=== PATIENT | male | born 1965 | race Asian ===

== ENCOUNTER 2017-02-23 17:43 | Emergency (ER) | payer BC ==
[~2017-02-23] VITALS: Ht 172.7 cm; Wt 93.6 kg
[2017-02-23 17:45] VITALS: Ht 172.7 cm; Wt 93.6 kg
[2017-02-23] MEDS ORDERED: FAMOTIDINE 20MG/5ML IV PUSH IV STA (18:08)
[2017-02-23] MEDS ORDERED: SODIUM CHLORIDE 0.9% 1000ML 1,000 ML IV STA ×3 (18:08→22:15)
[2017-02-23] MEDS ORDERED: FENTANYL CITRATE INJ 50 MCG/1 ML 2 ML VIAL IV ONE (18:15)
[2017-02-23 18:17] VITALS: O2SAT 95
[2017-02-23 18:26] LABS: BASO % 0.5 %; BASO ABS # 0.04 K/uL (0-0.2); EOS % 4.3 %; EOS ABS # 0.33 K/uL (0-0.5); HEMATOCRIT 46.8 % (42-52); HEMOGLOBIN 16.5 g/dL (14.0-18.0); IG# 0.02 K/uL (0.00-0.02); LYMPH % 39.2 %; LYMPH ABS # 3.04 K/uL (1.2-3.4); MEAN CELL VOLUME 93.2 fL (80-100); MEAN CORPUSCULAR HEMOGLOBIN 32.9 pg (25-34); MEAN CORPUSCULAR HGB CONC 35.3 g/dl (32-36); MEAN PLATELET VOLUME 10.5 fL (7.4-10.4); MONO % 7.9 %; MONO ABS # 0.61 K/uL (0.11-0.59); NEUT % 47.8 %; NEUT ABS # 3.71 K/uL (1.4-6.5); PLATELET COUNT 221 K/uL (130-400); RED CELL DISTRIBUTION WIDTH CV 12.2 % (11.5-14.5); RED CELL DISTRIBUTION WIDTH SD 40.8 fL (36.4-46.3); WHITE BLOOD COUNT 7.75 K/uL (4.8-10.8)
[2017-02-23] MEDS ORDERED: OPTIRAY 320 IV PRN (18:30)
[2017-02-23 18:38] LABS: ISTAT CREATININE 1.2 mg/dl (0.6-1.3); ISTAT IONIZED CALCIUM 1.21 mmol/l (1.12-1.32); ISTAT POTASSIUM 3.6 mEq/L (3.3-5.0)
[2017-02-23] MEDS ORDERED: METF-383 PO (18:42)
[2017-02-23] MEDS ORDERED: OMEG10007 PO (18:43)
[2017-02-23] MEDS ORDERED: MULT-506 PO (18:44)
[2017-02-23] MEDS ORDERED: LECI1200 PO (18:45)
[2017-02-23 18:53] LABS: ALKALINE PHOSPHATASE 50 U/L (45-117); ALT/SGPT 33 U/L (12-78); AST/SGOT 20 U/L (15-37); BLOOD UREA NITROGEN 17 mg/dl (7-18); CALCIUM 8.8 mg/dl (8.5-10.1); CARBON DIOXIDE 27 mmol/L (21-32); CREATININE 1.26 mg/dl (0.60-1.40); GLUCOSE 108 mg/dl (70-99); LIPASE 148 U/L (73-393); POTASSIUM 3.6 mmol/L (3.5-5.1); SODIUM 139 mmol/L (136-145); TOTAL PROTEIN 7.7 gm/dl (6.4-8.2)
--- NOTE | 2017-02-23 19:05 | DIAGNOSTIC IMAGING REPORT ---
CHEST ONE VIEW PORTABLE CLINICAL HISTORY: CHEST PAIN pain COMPARISON STUDY: No previous studies for comparison. FINDINGS: The bones soft tissues and hemidiaphragms are normal. The cardiomediastinal silhouette is normal. The lungs are clear. The pulmonary vasculature is normal. IMPRESSION: Negative chest. The above report was generated using voice recognition software. It may contain grammatical, syntax or spelling errors. Electronically signed by: Mika Denis M.D. 02/23/2017 7:04 PM Dictated Date/Time: 02/23/2017 7:04 PM
--- NOTE | 2017-02-23 19:28 | DIAGNOSTIC IMAGING REPORT ---
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 No additional abnormalities are identified. No evidence for contrast extravasation. Electronically signed by: Mika Denis M.D. 02/23/2017 7:36 PM Dictated Date/Time: 02/23/2017 7:35 PM ORIGINAL REPORT Study: CT angiography chest abdomen and pelvis HISTORY:: Pain. FINDINGS: Lungs are clear. The thoracic aorta is normal in course and caliber. There is a small hiatal hernia. Evaluation of the arterial structures the abdomen and pelvis showed no evidence for aneurysm or dissection. There is no significant stenotic process. Bowel pattern is nonobstructive. Liver spleen and pancreas are unremarkable. The appendix is normal. The thoracolumbar spine shows minimal degenerative disc change. There is no evidence for compression deformity. IMPRESSION: No evidence for aneurysm or dissection. 2. No filling defects of the pulmonary arterial vasculature. 3. Lungs are clear. 4. Nonobstructive bowel pattern with no acute process of the abdomen or pelvis. 5. No acute process of the musculoskeletal system Electronically signed by: Mika Denis M.D. 02/23/2017 7:27 PM Dictated Date/Time: 02/23/2017 7:23 PM
--- NOTE | 2017-02-23 19:35 | DIAGNOSTIC IMAGING REPORT ---
ANGIO ABD/PELVIS WITH CONTRAST CLINICAL HISTORY: Pain Chest pain TECHNIQUE: Transaxial acquisition with multi axial reformatted images COMPARISON STUDY: CT angiogram of chest FINDINGS: Residual report as noted in the CT of the chest. Evaluation of high-resolution images of the abdomen and pelvis demonstrate a short segment dissection of the celiac axis approximate 1 cm from its origin. This extends over a length of 8 mm. No additional abdominal anomalies are present. All remaining arterial structures are unremarkable. 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 No evidence for contrast extravasation. This is best seen on sagittal reformatted images 43 of 79 in the sagittal plane. The above report was generated using voice recognition software. It may contain grammatical, syntax or spelling errors. Electronically signed by: Mika Denis M.D. 02/23/2017 7:34 PM Dictated Date/Time: 02/23/2017 7:31 PM
--- NOTE | 2017-02-23 21:27 | EMERGENCY ROOM VISIT NOTE ---
History Report prepared by Janesibgino: Cyril Chowdary Under the Supervision of: Dr. Elvis An M.D. First contact with patient: 18:05 Chief Complaint: CHEST PAIN Stated Complaint: HEART PAIN, BACK PAIN History of Present Illness The patient is a 51 year old male who presents to the Emergency Room with complaints of waxing and waning lower left chest pain beginning this morning. He states that his pain began after eating a kiwi for breakfast. He describes his pain as "sharp". The patient states that his pain worsened one hour ago. His pain radiates into his upper back, between his shoulder blades. He also complains of intermittent nausea, shortness of breath and diaphoresis. The patient has no known cardiac history, or history of blood clots. He is on Metformin for Type II Diabetes. He denies recent surgery or prolonged travel. The patient denies diarrhea. He states that he attempted to defecate earlier today but was unable. He denies eating anything abnormal today. Source of History: patient Onset: This morning Position: chest (lower left) Quality: sharp Timing: waxes/wanes Associated Symptoms: + diaphoresis, + SOB, + nausea (intermittent), + back pain (between shoulderblades), No diarrhea Review of Systems See HPI for pertinent positives and negatives. A total of ten systems were reviewed and were otherwise negative. Past Medical & Surgical Medical Problems: (1) Diabetes Family History No pertinent family history stated. Social History Smoking Status: Never Smoker Marital Status: Housing Status: lives with family Current/Historical Medications Scheduled Fish Oil ([place]-3), 1 CAP PO QPM Lecithin (Lecithin), 1,200 MG PO DAILY Metformin Hcl (Glucophage), 850 MG PO DAILY Multivitamin (Multivitamin), 1 TAB PO DAILY Allergies Coded Allergies: Tomato (Verified Allergy, Unknown, RASH, 02/23/17) Physical Exam Vital Signs Date Time Temp Pulse Resp B/P (MAP) Pulse Ox O2 Delivery O2 Flow Rate FiO2 02/24/17 02:51 36.9 64 18 127/79 99 02/23/17 23:30 64 13 99 Room Air 02/23/17 23:03 72 02/23/17 23:00 63 12 02/23/17 22:30 65 14 02/23/17 22:00 76 16 132/78 02/23/17 21:30 70 16 155/81 02/23/17 20:30 77 21 147/81 02/23/17 20:29 74 02/23/17 20:00 75 13 145/82 02/23/17 19:47 137/84 98 Room Air 02/23/17 19:45 62 16 02/23/17 18:45 61 14 02/23/17 18:17 95 Room Air 02/23/17 18:08 95 Room Air 02/23/17 17:58 61 02/23/17 17:45 65 16 148/83 98 Room Air Physical Exam GENERAL: Awake, alert, uncomfortable-appearing, in mild distress HENT: Normocephalic, atraumatic. Dry mucous membranes. EYES: Normal conjunctiva. Sclera non-icteric. NECK: Supple. No nuchal rigidity. FROM. No JVD. RESPIRATORY: Clear to auscultation. CARDIAC: Regular rate, normal rhythm. Extremities warm and well perfused. Pulses equal. ABDOMEN: Soft, non-distended. No tenderness to palpation. No rebound or guarding. No masses. RECTAL: Deferred. MUSCULOSKELETAL: Chest examination reveals no tenderness. The back is symmetrical on inspection without obvious abnormality. There is no CVA tenderness to palpation. No joint edema. LOWER EXTREMITIES: Calves are equal size bilaterally and non-tender. No edema. No discoloration. NEURO: Normal sensorium. No sensory or motor deficits noted. SKIN: Warm and moist. No rash or jaundice noted. Medical Decision & Procedures ER Provider Diagnostic Interpretation: Radiology results as stated below per my review and radiologist interpretation: CHEST ONE VIEW PORTABLE FINDINGS: The bones soft tissues and hemidiaphragms are normal. The cardiomediastinal silhouette is normal. The lungs are clear. The pulmonary vasculature is normal. IMPRESSION: Negative chest. The above report was generated using voice recognition software. It may contain grammatical, syntax or spelling errors. Electronically signed by: Mika Denis M.D. 02/23/2017 7:04 PM ORIGINAL REPORT Study: CT angiography chest abdomen and pelvis HISTORY:: Pain. FINDINGS: Lungs are clear. The thoracic aorta is normal in course and caliber. There is a small hiatal hernia. Evaluation of the arterial structures the abdomen and pelvis showed no evidence for aneurysm or dissection. There is no significant stenotic process. Bowel pattern is nonobstructive. Liver spleen and pancreas are unremarkable. The appendix is normal. The thoracolumbar spine shows minimal degenerative disc change. There is no evidence for compression deformity. IMPRESSION: No evidence for aneurysm or dissection. 2. No filling defects of the pulmonary arterial vasculature. 3. Lungs are clear. 4. Nonobstructive bowel pattern with no acute process of the abdomen or pelvis. 5. No acute process of the musculoskeletal system Electronically signed by: Mika Denis M.D. 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 No additional abnormalities are identified. No evidence for contrast extravasation. Electronically signed by: Mika Denis M.D. 02/23/2017 7:36 PM Dictated Date/Time: 02/23/2017 7:35 PM ANGIO ABD/PELVIS WITH CONTRAST FINDINGS: Residual report as noted in the CT of the chest. Evaluation of high-resolution images of the abdomen and pelvis demonstrate a short segment dissection of the celiac axis approximate 1 cm from its origin. This extends over a length of 8 mm. No additional abdominal anomalies are present. All remaining arterial structures are unremarkable. 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 No evidence for contrast extravasation. This is best seen on sagittal reformatted images 43 of 79 in the sagittal plane. The above report was generated using voice recognition software. It may contain grammatical, syntax or spelling errors. Electronically signed by: Mika Denis M.D. 02/23/2017 7:34 PM Laboratory Results 02/23/17 18:02 Red Blood Count 5.02, Mean Corpuscular Volume 93.2, Mean Corpuscular Hemoglobin 32.9, Mean Corpuscular Hemoglobin Concent 35.3, Mean Platelet Volume 10.5, Neutrophils (%) (Auto) 47.8, Lymphocytes (%) (Auto) 39.2, Monocytes (%) (Auto) 7.9, Eosinophils (%) (Auto) 4.3, Basophils (%) (Auto) 0.5, Neutrophils # (Auto) 3.71, Lymphocytes # (Auto) 3.04, Monocytes # (Auto) 0.61, Eosinophils # (Auto) 0.33, Basophils # (Auto) 0.04 02/23/17 18:02 Test 02/23/17 18:02 02/23/17 18:24 02/23/17 18:32 02/23/17 21:05 White Blood Count 7.75 K/uL (4.8-10.8) Red Blood Count 5.02 M/uL (4.7-6.1) Hemoglobin 16.5 g/dL (14.0-18.0) Hematocrit 46.8 % (42-52) Mean Corpuscular Volume 93.2 fL (80-100) Mean Corpuscular Hemoglobin 32.9 pg (25-34) Mean Corpuscular Hemoglobin Concent 35.3 g/dl (32-36) Platelet Count 221 K/uL (130-400) Mean Platelet Volume 10.5 fL (7.4-10.4) Neutrophils (%) (Auto) 47.8 % Lymphocytes (%) (Auto) 39.2 % Monocytes (%) (Auto) 7.9 % Eosinophils (%) (Auto) 4.3 % Basophils (%) (Auto) 0.5 % Neutrophils # (Auto) 3.71 K/uL (1.4-6.5) Lymphocytes # (Auto) 3.04 K/uL (1.2-3.4) Monocytes # (Auto) 0.61 K/uL (0.11-0.59) Eosinophils # (Auto) 0.33 K/uL (0-0.5) Basophils # (Auto) 0.04 K/uL (0-0.2) RDW Standard Deviation 40.8 fL (36.4-46.3) RDW Coefficient of Variation 12.2 % (11.5-14.5) Immature Granulocyte % (Auto) 0.3 % Immature Granulocyte # (Auto) 0.02 K/uL (0.00-0.02) Est Creatinine Clear Calc Drug Dose 76.1 ml/min Estimated GFR () 75.5 Estimated GFR (Non- 65.1 BUN/Creatinine Ratio 13.2 (10-20) Calcium Level 8.8 mg/dl (8.5-10.1) Total Bilirubin 0.4 mg/dl (0.2-1) Direct Bilirubin mg/dl (0-0.2) Aspartate Amino Transf (AST/SGOT) 20 U/L (15-37) Alanine Aminotransferase (ALT/SGPT) 33 U/L (12-78) Alkaline Phosphatase 50 U/L (45-117) Troponin I < 0.015 ng/ml (0-0.045) Total Protein 7.7 gm/dl (6.4-8.2) Albumin 4.0 gm/dl (3.4-5.0) Lipase 148 U/L (73-393) Bedside Hemoglobin 16.0 g/dl (14.0-18.0) Bedside Hematocrit 47 % (42-52) Bedside Sodium 141 mEq/L (135-144) Bedside Potassium 3.6 mEq/L (3.3-5.0) Bedside Chloride 103 mEq/L (101-112) Bedside Total CO2 27 mEq/l (24-31) Anion Gap 16.0 mmol/L (16-25) Bedside Blood Urea Nitrogen 17 mg/dl (7-18) Bedside Creatinine 1.2 mg/dl (0.6-1.3) Bedside Glucose (other) 111 mg/dl (70-99) Bedside Ionized Calcium (Eric) 1.21 mmol/l (1.12-1.32) Lactic Acid Level 2.3 mmol/L (0.4-2.0) Bedside Lactic Acid Venous 1.64 mmol/L (0.90-1.70) Test 02/23/17 21:10 Urine Color YELLOW Urine Appearance CLEAR (CLEAR) Urine pH 5.5 (4.5-7.5) Urine Specific [place] 1.040 (1.000-1.030) Urine Protein NEG (NEG) Urine Glucose (UA) NEG (NEG) Urine Ketones NEG (NEG) Urine Occult Blood NEG (NEG) Urine Nitrite NEG (NEG) Urine Bilirubin NEG (NEG) Urine Urobilinogen NEG (NEG) Urine Leukocyte Esterase NEG (NEG) Laboratory results reviewed by me Medications Administered Medications (Trade) Dose Ordered Sig/Home Route Start Time Stop Time Status Last Admin Dose Admin Sodium Chloride 1,000 ml @ 999 mls/hr Q1H1M STAT IV 02/23/17 18:08 02/23/17 19:08 DC 02/23/17 18:30 999 MLS/HR Famotidine (Pepcid 20mg Iv Push) 20 mg NOW STAT IV 02/23/17 18:08 02/23/17 18:17 DC 02/23/17 18:32 20 MG Fentanyl Citrate (Fentanyl Inj) 50 mcg NOW ONCE IV 02/23/17 18:15 02/23/17 18:16 DC 02/23/17 18:32 50 MCG Sodium Chloride 1,000 ml @ 999 mls/hr Q1H1M STAT IV 02/23/17 19:18 02/23/17 20:18 DC 02/23/17 19:18 999 MLS/HR Heparin Sodium (Porcine) (Heparin Sq 5000 Unit/0.5ml) 10,000 unit STK-MED ONCE .ROUTE 02/23/17 21:45 02/23/17 21:46 DC 02/23/17 22:29 6,000 UNIT Heparin Sodium/ Dextrose (Heparin 25,000 Unit/500ml D5W) 25,000 unit STK-MED ONCE .ROUTE 02/23/17 21:46 02/23/17 21:47 DC 02/23/17 22:28 25,000 UNIT Sodium Chloride 1,000 ml @ 125 mls/hr Q8H STAT IV 02/23/17 22:15 02/24/17 03:20 DC 02/23/17 22:15 125 MLS/HR ECG Indication: chest pain Rate (beats per minute): 59 Rhythm: sinus bradycardia Findings: no acute ischemic change, other (Normal axis. ) ED Course 1805: The patient was evaluated in room C6. A complete history and physical exam was performed. 2015: Upon reexamination, the patient was resting comfortably. I discussed the test results and treatment plan with him. The patient has no preference for transfer to [facility] or [facility]. 2124: I updated the patient on her transfer status. The patient will be transferred to the [facility] for direct admission to the hospital. Medical Decision I reviewed the patient's past medical history, medications, and the nursing notes as described above. The patient's presentation and history were concerning for etiologies such as cardiac ischemia, aortic dissection, pulmonary embolism, pneumonia, pneumothorax , musculoskeletal, infections, pericarditis, myocarditis, esophageal rupture, gastrointestinal, as well as others were entertained. The patient is a 51-year-old gentleman who presents emergency Department with epigastric pain that began this morning and has waxed and waned eventually evolving to back pain as well with nausea and sweating per hpi. On arrival the patient is in mild distress. Pain out of proportion to abdominal exam, which is soft NT/ND. Afebrile with stable vital signs. Pulses are equal. Labs notable for lactate of 2.3 otherwise did clear after IV fluids. WBC within normal limits. CTA was done to rule out dissection given the patient's presentation of sharp pain with radiation to the back. CT did demonstrate a 8mm dissection in the inferior aspect of the proximal celiac no evidence of thrombus or occlusion. Patent distal branches including hepatic artery. I d/w radiology who observed that finding coudl be chronic however given patient's sx will presume etiology of patient's sx. Vasc surgery is not available over this holiday and thus case was discussed with general surgery, Dr. Escobedo, who agrees that patient requires transfer to Center where vascular surgery is available. Case was discussed with Dr. Murray, [facility] vas surgery, who recommends the patient be admitted with heparin drip and repeat CTA. However given that there is no occlusion or thrombus, there is no indication for emergent vascular intervention. Discussed the case with our hospitalist Dr. Ball, who recommends transfer to tertiary care center where vascular is available this hol in case intervention is required. This was further discussed with , [facility] hospitalist, who accepts the patient for transfer. Heparin initiated and patient transferred via ALS. Medication Reconcilliation Current Medication List: was personally reviewed by me Blood Pressure Screening Patient's blood pressure: Elevated blood pressure Blood pressure disposition: Elevated BP felt to be situational Consults Time Called: 2003 Consulting Physician: Dr. Escobedo -General Surgery Returned Call: 2006 I discussed the patient with Dr. Escobedo of General Surgery. He agrees that the patient needs a consultation with vascular surgery. Additional Consults: Time Called: 2019 Consulted Physician: Dr. Murray -[facility] Vascular Surgery Returned Call: 2023 Additional Comments: I discussed the patient with Dr. Murray. She states that if the patient's vessels are patent that he does not need emergent vascular intervention. She recommends admission to the hospital. Time Called: 2039 Consulted Physician: Dr. Holly -[facility] Returned Call: 2042 Additional Comments: I discussed the patient's case with Dr. Holly. He states that there will be no vascular coverage for at least a week, so the patient should be transferred to an acute care facility with vascular coverage. Time Called: 2103 Consulted Physician: Dr. Mercedes - [facility] Returned Call: 2113 -- I discussed the patient's case with Dr. Mercedes of [facility]. The patient will be transferred to [facility] for direct admission to the hospital. Impression Primary Impression: Celiac artery dissection Scribe Attestation The scribe's documentation has been prepared under my direction and personally reviewed by me in its entirety. I confirm that the note above accurately reflects all work, treatment, procedures, and medical decision making performed by me. Departure Information Dispostion Transfer Acute Care Facility ([facility]) Referrals No Doctor, Assigned (PCP) Patient Instructions [facility]
[2017-02-23] MEDS ORDERED: HEPARIN SOD 5000 UNIT/0.5 ML CARP ONE (21:45)
[2017-02-23] MEDS ORDERED: HEPARIN 25000 UNIT/500 ML D5W ONE (21:46)
[2017-02-24 02:51] VITALS: BP 127/79; PULSE 64; TEMP 36.9; O2SAT 99
== END 2017-02-24 02:52 | disposition short-term general hospital (02) ==
LOC: C.EDB 17:44 → C.EDC 02-24 02:52
DX: I77.79 Dissection of other specified artery (principal); E11.9 Type 2 diabetes mellitus without complications; Z79.84 Long term (current) use of oral hypoglycemic drugs

== ENCOUNTER → 2017-02-28 | Outpatient (CLI) | payer OTHER ==
[~2017-02-28] MED LIST: LECI1200 PO; METF-383 PO; MULT-506 PO; OMEG10007 PO
[2017-02-28 13:13] LABS: BASO % 0.2 %; BASO ABS # 0.02 K/uL (0-0.2); EOS % 0.1 %; EOS ABS # 0.01 K/uL (0-0.5); HEMATOCRIT 46.5 % (42-52); HEMOGLOBIN 16.4 g/dL (14.0-18.0); IG# 0.05 K/uL (0.00-0.02); LYMPH % 9.9 %; LYMPH ABS # 1.06 K/uL (1.2-3.4); MEAN CORPUSCULAR HEMOGLOBIN 32.8 pg (25-34); MEAN CORPUSCULAR HGB CONC 35.3 g/dl (32-36); MEAN PLATELET VOLUME 10.8 fL (7.4-10.4); MONO % 2.1 %; MONO ABS # 0.22 K/uL (0.11-0.59); NEUT % 87.2 %; NEUT ABS # 9.37 K/uL (1.4-6.5); PLATELET COUNT 245 K/uL (130-400); RED CELL DISTRIBUTION WIDTH CV 12.3 % (11.5-14.5); RED CELL DISTRIBUTION WIDTH SD 41.2 fL (36.4-46.3); WHITE BLOOD COUNT 10.73 K/uL (4.8-10.8)
[2017-02-28 13:27] LABS: INR 1.3 (0.9-1.1)
[2017-02-28 15:54] LABS: ALBUMIN 4.3 gm/dl (3.4-5.0); ALT/SGPT 91 U/L (12-78); AST/SGOT 82 U/L (15-37); BLOOD UREA NITROGEN 26 mg/dl (7-18); CALCIUM 9.4 mg/dl (8.5-10.1); CARBON DIOXIDE 23 mmol/L (21-32); CREATININE 1.06 mg/dl (0.60-1.40); GLUCOSE 141 mg/dl (70-99); POTASSIUM 3.9 mmol/L (3.5-5.1); SODIUM 135 mmol/L (136-145)
[2017-02-28 15:56] LABS: ALKALINE PHOSPHATASE 56 U/L (45-117); TOTAL PROTEIN 8.4 gm/dl (6.4-8.2)
[2017-03-01 07:31] LABS: HEMOGLOBIN A1C 5.9 % (4.5-5.6)
== END | disposition home or self-care (01) ==
LOC: C.LAB1850 12:14
PROVIDERS: ATTEND Family Medicine
DX: I77.79 Dissection of other specified artery (principal); R07.9 Chest pain, unspecified

== ENCOUNTER → 2017-09-26 | Outpatient (CLI) | payer OTHER ==
--- NOTE | 2017-09-26 09:05 | DIAGNOSTIC IMAGING REPORT ---
CHEST 2 VIEWS ROUTINE CLINICAL HISTORY: COUGH COMPARISON STUDY: 02/23/2017 FINDINGS: The heart is normal in size. There is no failure. There is no focal pulmonary consolidation. There are no pleural effusions. There is a prominent left cardiophrenic angle fat pad.[ IMPRESSION: No active disease in the chest. Electronically signed by: Arthur Wheat M.D. 09/26/2017 9:03 AM Dictated Date/Time: 09/26/2017 9:02 AM
== END | disposition home or self-care (01) ==
LOC: C.RAD1850 08:42
PROVIDERS: ATTEND Family Medicine
DX: R05 Cough (principal)

== ENCOUNTER → 2017-10-07 | Outpatient (CLI) | payer OTHER ==
--- NOTE | 2017-10-08 13:26 | PULMONARY FUNCTION TEST ---
CLINICAL DATA: A 52-year-old male with a height of 68 inches and a weight of [address] De La Cruz for evaluation of cough. Spirometry pre-bronchodilator was performed. FINDINGS: Prebronchodilator spirometry demonstrates very mild small airway obstruction. FVC was 99% of predicted. FEV1 was 95% of predicted. [id number] was reduced at 57% of predicted. IMPRESSION: Very mild obstructive small airways disease. MTDD
== END | disposition home or self-care (01) ==
LOC: EDSEX → C.RC 12:58 → MERGE 13:00
PROVIDERS: ATTEND Family Medicine
DX: R05 Cough (principal)